=== PATIENT | male | born 1955 | race African-American/Black ===

== ENCOUNTER 2023-09-27 14:04 | Outpatient (RCR) | payer MEDICARE, SELFPAY | END 2023-09-27 23:59 | disposition home or self-care (01) | LOC: RPT 14:04 | PROVIDERS: ATTENDING PHYSICIAN Orthopaedic Surgery; FAMILY PHYSICIAN Internal Medicine | DX: M76.31 Iliotibial band syndrome, right leg (principal); M25.552 Pain in left hip; M76.32 Iliotibial band syndrome, left leg; M22.41 Chondromalacia patellae, right knee; M22.42 Chondromalacia patellae, left knee; M25.551 Pain in right hip; Z73.6 Limitation of activities due to disability | CPT/HCPCS: 97110; 97162; 97535 ==

== ENCOUNTER 2023-10-12 15:29 | Outpatient (RCR) | payer MEDICARE, SELFPAY | END 2023-10-26 07:55 | disposition home or self-care (01) | LOC: RPT 15:29 | PROVIDERS: ATTENDING PHYSICIAN Orthopaedic Surgery; FAMILY PHYSICIAN Internal Medicine | DX: M25.552 Pain in left hip (principal); M25.551 Pain in right hip; M76.32 Iliotibial band syndrome, left leg; M22.41 Chondromalacia patellae, right knee; Z73.6 Limitation of activities due to disability | CPT/HCPCS: 97110; 97535 ==

== ENCOUNTER → 2024-02-09 14:12 | Outpatient (REF) | payer MEDICARE, SELFPAY | LOC: RAD 14:12 | PROVIDERS: FAMILY PHYSICIAN Nurse Practitioner Family | DX: N17.9 Acute kidney failure, unspecified (principal) | CPT/HCPCS: 93975 ==

== ENCOUNTER 2024-04-24 07:41 | Outpatient (RCR) | payer MEDICARE, SELFPAY ==
[2024-04-24 07:50] VITALS: BP 156/67
[2024-04-24] MEDS: SODIUM BICARBONATE 1150 MEQ IV (08:00)
== END 2024-04-29 23:59 | disposition home or self-care (01) ==
LOC: OID 07:41
PROVIDERS: ATTENDING PHYSICIAN Surgery Vascular Surgery; FAMILY PHYSICIAN Internal Medicine
DX: I71.42 Juxtarenal abdominal aortic aneurysm, without rupture (principal)
CPT/HCPCS: 96365; 96366

== ENCOUNTER → 2024-04-24 08:10 | Outpatient (REF) | payer MEDICARE, SELFPAY | LOC: RAD 08:10 | PROVIDERS: ATTENDING PHYSICIAN Surgery Vascular Surgery; FAMILY PHYSICIAN Internal Medicine | DX: I71.42 Juxtarenal abdominal aortic aneurysm, without rupture (principal) | CPT/HCPCS: 74174; Q9967 ==

== ENCOUNTER → 2024-08-22 06:27 | Outpatient (REF) | payer MEDICARE, SELFPAY ==
[2024-08-22 07:03] LABS: % Basophils 0.8 % (0-2); % Eosinophils 6.3 % (0-6); % Immature Granulocytes 0.3 % (0-0.5); % Monocytes 9.3 % (1.7-9.3); % Neutrophils 66.3 % (42.2-75.2); Absolute Basophils 0.1 10^3/uL (0-0.2); Absolute Eosinophils 0.4 10^3/uL (0-0.7); Absolute Lymphocytes 1.1 10^3/uL (1.2-3.4); Absolute Monocytes 0.6 10^3/uL (0.1-0.6); Absolute Neutrophils 4.1 10^3/uL (1.4-6.5); Mean Corp Hgb Conc. 31.6 g/dL (33.0-37.0); Mean Corpuscular Hgb 26.3 pg (27.0-31.0); Mean Corpuscular Volume 83.2 fL (80.0-94.0); Mean Platelet Volume 9.7 fL (7.4-10.4); Nucleated Red Blood Cells % 0 % (-); Platelet Count 192 10^3/uL (130-400); Red Blood Cell Count 4.57 10^6/uL (4.70-6.10); Red Cell Dist. Width 14.2 % (11.5-14.5); White Blood Cell Count 6.2 10^3/uL (4.8-10.8)
[2024-08-22 07:24] LABS: ALT (SGPT) 36 U/L (0-50); AST (SGOT) 27 U/L (17-59); Albumin 4.7 g/dl (3.5-5.0); Alkaline Phosphatase 127 U/L (38-126); Blood Urea Nitrogen 40 mg/dl (9-20); Calcium 9.7 mg/dl (8.4-10.2); Carbon Dioxide 23 mmol/L (22-30); Chloride 106 mmol/L (98-107); Glucose 105 mg/dl (70-99); HDL Cholesterol 35 mg/dl; LDL Cholesterol, Calculated 55 mg/dl; Sodium 140 mmol/L (135-145); Total Bilirubin 0.5 mg/dl (0.2-1.3); Total Cholesterol 129 mg/dl (50-199); Total Protein 7.2 g/dl (6.3-8.2); Triglyceride 197 mg/dl (10-149); Very Low Density Lipoprotein 39 mg/dl (0-30); eGFR 30.17
[2024-08-22 07:50] LABS: PSA, Total - Screen 0.99 ng/ml (0.0-4.0); TSH Reflex To Free T4 2.11 uIU/ml (0.47-4.68)
== END ==
LOC: REG 06:27
PROVIDERS: ATTENDING PHYSICIAN Internal Medicine; REFERRING PHYSICIAN Hospitalist
DX: I10 Essential (primary) hypertension (principal); F41.9 Anxiety disorder, unspecified; I71.40 Abdominal aortic aneurysm, without rupture, unspecified; E78.2 Mixed hyperlipidemia; E87.5 Hyperkalemia; N17.9 Acute kidney failure, unspecified; N18.31 Chronic kidney disease, stage 3a; D64.9 Anemia, unspecified; Z12.5 Encounter for screening for malignant neoplasm of prostate
CPT/HCPCS: 36415; 80053; 80061; 84443; 85025; G0103

== ENCOUNTER 2024-12-18 07:30 | Outpatient (RCR) | payer MEDICARE, SELFPAY ==
[2024-12-18 08:09] VITALS: BP 137/70
[2024-12-18] MEDS: SODIUM BICARBONATE 1150 MEQ IV (08:16)
[2024-12-18 14:25] VITALS: BP 123/71
== END 2024-12-28 23:59 | disposition home or self-care (01) ==
LOC: OID 07:30
PROVIDERS: ATTENDING PHYSICIAN Surgery Vascular Surgery; FAMILY PHYSICIAN Internal Medicine
DX: I71.42 Juxtarenal abdominal aortic aneurysm, without rupture (principal)
CPT/HCPCS: 96365; 96366

== ENCOUNTER → 2024-12-18 08:27 | Outpatient (REF) | payer MEDICARE, SELFPAY | LOC: RAD 08:27 | PROVIDERS: ATTENDING PHYSICIAN Surgery Vascular Surgery | DX: I71.42 Juxtarenal abdominal aortic aneurysm, without rupture (principal) | CPT/HCPCS: 74174; Q9967 ==